=== PATIENT | male | born 2000 | race Caucasian/White ===

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

== ENCOUNTER 2019-01-01 17:19 | Emergency (ER) | payer OTHER ==
--- NOTE | 2019-01-01 18:34 | ED ---
Lower Extremity - HPI Summary HPI Summary: 18-year-old presents with left ankle injury today. He states he is walking down a hill when he inverted his ankle. He has pain over the lateral aspect of the ankle. No numbness or tingling. no previous injury to the area. He has no medical conditions. He is able to ambulate with some pain. Denies any other injury. - History of Current Complaint Chief Complaint: EDExtremityLower Stated Complaint: "LT ANKLE INJURY PER PT" Time Seen by Provider: 01/01/19 18:21 Pain Intensity: 5 - Allergies/Home Medications Allergies/Adverse Reactions: Allergies Allergy/AdvReac Type Severity Reaction Status Date / Time No Known Allergies Allergy Verified 01/01/19 17:39 Home Medications: Home Medications NK [No Home Medications Reported] 01/01/19 [History Confirmed 01/01/19] PMH/Surg Hx/FS Hx/Imm Hx Endocrine/Hematology History: Denies: Hx Diabetes Cardiovascular History: Denies: Hx Hypertension Respiratory History: Denies: Hx Asthma, Hx Chronic Obstructive Pulmonary Disease (COPD) Infectious Disease History: No Infectious Disease History: Denies: Traveled Outside the [place] in Last 30 Days - Family History Known Family History: Negative: Cardiac Disease, Hypertension, Diabetes, Respiratory Disease - Social History Alcohol Use: Weekly Alcohol Amount: 2 beers every other weekend and sometimes not even that much Substance Use Type: Reports: None Smoking Status (MU): Never Smoked Tobacco Review of Systems Negative: Fever Negative: Chest Pain Negative: Shortness Of Breath Positive: Myalgia - left ankle pain All Other Systems Reviewed And Are Negative: Yes Physical Exam Triage Information Reviewed: Yes Vital Signs On Initial Exam: Initial Vitals Temp Pulse Resp BP Pulse Ox 98.8 F 82 16 141/88 99 01/01/19 17:36 01/01/19 17:36 01/01/19 17:36 01/01/19 17:36 01/01/19 17:36 Vital Signs Reviewed: Yes Appearance: Positive: Well-Appearing Skin: Positive: Warm, Dry Head/Face: Positive: Normal Head/Face Inspection Eyes: Positive: Normal, Conjunctiva Clear ENT: Positive: Pharynx normal Respiratory/Lung Sounds: Positive: Clear to Auscultation, Breath Sounds Present Cardiovascular: Positive: Normal, RRR Musculoskeletal: Positive: Strength/ROM Intact - left ankle with pain, Other - tenderness left lateral malleolus, good pulses, capilary refill<2secs Neurological: Positive: Normal Psychiatric: Positive: Normal Diagnostics - Vital Signs Vital Signs Temp Pulse Resp BP Pulse Ox 01/01/19 17:36 98.8 F 82 16 141/88 99 - Laboratory Lab Statement: Any lab studies that have been ordered have been reviewed, and results considered in the medical decision making process. - Radiology ankle Radiology Interpretation Completed By: Radiologist Summary of Radiographic Findings: IMPRESSION: NO RADIOGRAPHICALLY APPARENT FRACTURE OR DISLOCATION INVOLVING THE LEFT. ANKLE. Lower Extremity Course/Dx - Course Course Of Treatment: 18-year-old presents with left ankle injury today. He states he is walking down a hill when he inverted his ankle. He has pain over the lateral aspect of the ankle. No numbness or tingling. no previous injury to the area. He has no medical conditions. He is able to ambulate with some pain. Denies any other injury. On exam tenderness over lateral malleolus of the ankle. Neurovascular intact. X-ray normal. We'll treat his sprain with rice. Patient understands and agrees plan. - Diagnoses Differential Diagnosis/HQI/PQRI: Positive: Fracture (Closed), Sprain, Strain Provider Diagnoses: Left ankle sprain Discharge - Sign-Out/Discharge Documenting (check all that apply): Patient Departure Patient Received Moderate/Deep Sedation with Procedure: No - Discharge Plan Condition: Good Disposition: HOME Patient Education Materials: Ankle Sprain (ED) Referrals: [facility] [Primary Care Provider] - Additional Instructions: Stay off ankle as much as possible Ice, elevate, keep in FRANSISCO tyenlol or Ibuprofen every 6 hours for pain Follow up with [facility] if no improvement Return to ED if develop or any new or worsening symptoms - Billing Disposition and Condition Condition: GOOD Disposition: Home
[2019-01-01 19:04] VITALS: BP 127/70
== END 2019-01-01 19:03 | disposition home or self-care (01) ==
LOC: ED 17:19
DX: S93.402A Sprain of unspecified ligament of left ankle, initial encounter (principal); X50.1XXA Overexertion from prolonged static or awkward postures, initial encounter; Y93.01 Activity, walking, marching and hiking; Y92.828 Other wilderness area as the place of occurrence of the external cause
CPT/HCPCS: 99282